=== PATIENT | male | born 1990 | race Two or more races ===

== ENCOUNTER 2021-01-09 20:05 | Emergency (ER) | payer MEDICAID ==
[~2021-01-09] VITALS: Ht 172.7 cm; Wt 75.0 kg
[2021-01-09] MEDS ORDERED: LORAZEPAM 2MG/ML CPJ IV ONE (22:00)
[2021-01-09] MEDS ORDERED: SODIUM CHLORIDE 0.9% 1,000 ML IV ONE (22:00)
[2021-01-09] MEDS ORDERED: LEVETIRACETAM 500MG TABLET PO ONE ×2 (23:15→23:45)
[2021-01-10 00:30] LABS: BASOPHILS % 1.2 % (0.0-2.0); EOSINOPHILS % 2.3 % (0.0-5.0); HEMATOCRIT. 40.9 % (42.0-52.0); HEMOGLOBIN. 14.4 g/dL (14.0-18.0); LYMPHOCYTES % 41.7 % (20.0-50.0); MEAN CORPUSCULAR HEMOGLOBIN 32.7 pg (28.0-32.0); MEAN CORPUSCULAR VOLUME 92.7 fL (80.0-94.0); MEAN PLATELET VOLUME 7.7 fl (7.4-10.4); MONOCYTES % 6.7 % (2.0-8.0); NEUTROPHILS % 48.1 % (40.0-76.0); PLATELET 217 x1000/uL (130-400); RED BLOOD CELL COUNT 4.41 mill/uL (4.7-6.1); RED CELL DISTRIBUTION WIDTH 12.2 % (11.6-14.6)
[2021-01-10 00:35] LABS: CHLORIDE 110 mEq/L (98-107)
[2021-01-10 00:40] LABS: ETHANOL BLOOD < 10 mg/dL
[2021-01-10] MEDS ORDERED: LEVE1000 MT (01:07)
[2021-01-10 01:40] VITALS: BP 135/77
== END 2021-01-10 02:23 | disposition home or self-care (01) ==
LOC: ER 20:05
DX: G40.509 Epileptic seizures related to external causes, not intractable, without status epilepticus (principal); F12.10 Cannabis abuse, uncomplicated; R74.01 Elevation of levels of liver transaminase levels; R00.0 Tachycardia, unspecified; Z13.9 Encounter for screening, unspecified; Z98.890 Other specified postprocedural states
CPT/HCPCS: 36415; 70450; 80053; 80320; 85025; 93005; 96374; 99284; J2060; J7030; G0480